=== PATIENT | male | born 1980 | race Caucasian/White ===

== ENCOUNTER 2019-04-18 12:21 | Emergency (ER) | payer SELFPAY ==
[2019-04-18] MEDS ORDERED: FENTANYL CITR 100 MCG/2 ML ONE ×2 (12:41→15:05)
--- NOTE | 2019-04-18 13:54 | RAD REPORT ---
EXAM DESCRIPTION: RAD -Hand Left 3 View - 04/18/2019 1:03 pm CLINICAL HISTORY: Left hand pain status post injury FINDINGS: No acute fracture or dislocation is seen. Soft tissue laceration distal fourth phalanx
[2019-04-18] MEDS ORDERED: LIDOCAINE 1% MPF 5 ML VIAL ONE (14:12)
--- NOTE | 2019-04-18 15:38 | ER ---
Nurse's Notes [facility] Name: Keven Greenberg Age: 38 yrs Sex: Male : 1980 Arrival Date: 04/18/2019 Time: 12:22 Bed 8 Private MD: None, None Diagnosis: Laceration without foreign body of left ring finger with damage to nail Presentation: 04/18 12:24 Presenting complaint: Patient states: He cut his ring finger on the band saw. Drsg to aj1 left hand dry and intact. Last tetanus shot was one year ago. Transition of care: patient was not received from another setting of care. Onset of symptoms was April 18, 2019. Risk Assessment: Do you want to hurt yourself or someone else? Patient reports no desire to harm self or others. Initial Sepsis Screen: Does the patient meet any 2 criteria? No. Patient's initial sepsis screen is negative. Does the patient have a suspected source of infection? No. Patient's initial sepsis screen is negative. Care prior to arrival: None. 12:24 Method Of Arrival: Ambulatory [facility] 12:24 Acuity: FAMILIA 4 aj1 Triage Assessment: 12:25 General: Appears in no apparent distress. uncomfortable, Behavior is cooperative, aj1 anxious. Pain: Complains of pain in left hand Pain currently is 10 out of 10 on a pain scale. Neuro: Level of Consciousness is awake, alert, obeys commands. Cardiovascular: Patient's skin is warm and dry. Respiratory: Airway is patent Respiratory effort is even, unlabored, Respiratory pattern is regular, symmetrical. Historical: - Allergies: 12:25 No Known Allergies; aj1 - Home Meds: 12:25 None [Active]; aj1 - PMHx: 12:25 None; aj1 - PSHx: 12:25 wrist surgery; aj1 - Immunization history:: Last tetanus immunization: up to date. - Social history:: Smoking status: Patient uses tobacco products, smokes one pack cigarettes per day. - Ebola Screening: : Patient denies travel to an Ebola-affected area in the 21 days before illness onset. Screenin:31 Abuse screen: Denies threats or abuse. Nutritional screening: No deficits noted. tw2 Tuberculosis screening: No symptoms or risk factors identified. Fall Risk None identified. Assessment: 12:30 General: Appears in no apparent distress. uncomfortable, Behavior is cooperative, jl7 anxious. Pain: Complains of pain in dorsal aspect of distal phalanx of left ring finger Pain currently is 10 out of 10 on a pain scale. Neuro: Level of Consciousness is awake, alert, obeys commands, Oriented to person, place, time, situation. Cardiovascular: Patient's skin is warm and dry. Respiratory: Airway is patent Respiratory effort is even, unlabored, Respiratory pattern is regular, symmetrical. Derm: Skin is pink, warm \T\ dry. Injury Description: Avulsion sustained to left ring finger is partial was sustained 30-60 minutes ago. 13:21 Reassessment: Patient appears in no apparent distress at this time. No changes from tw2 previously documented assessment. Patient and/or family updated on plan of care and expected duration. Pain level reassessed. Patient is alert, oriented x 3, equal unlabored respirations, skin warm/dry/pink. 16:16 Reassessment: pt will be discharged once shot time is up. jl7 Vital Signs: 12:25 BP 139 / 95; Resp 18; Temp 98.5; Weight 72.57 kg (R); Height 6 ft. 4 in. (193.04 cm) aj1 (R); Pain 10/10; 13:21 BP 109 / 50; Pulse 74; Resp 17; Pulse Ox 95% on R/A; tw2 12:25 Body Mass Index 19.48 (72.57 kg, 193.04 cm) aj1 ED Course: 12:22 Patient arrived in ED. mr 12:22 None, None is Private Physician. mr 12:23 Jerardo Gardner, TEACHER'S ASSISTANT is PHCP. pm1 12:23 Zaid Wilson MD is Attending Physician. pm1 12:25 Triage completed. aj1 12:25 Arm band placed on Patient placed in an exam room. aj1 12:26 Bed in low position. Call light in reach. Adult w/ patient. tw2 12:28 Trent Whittington RN is Primary Nurse. jl7 13:04 Hand Left 3 View XRAY In Process Unspecified. EDMS 15:00 Assist provider with laceration repair on left ring finger that was between 2.6 to 7.5 jl7 cm using sutures. Set up tray. Performed by Jerardo Gardner TEACHER'S ASSISTANT Dressed with 4X4s, Neosporin, Patient tolerated poorly. 15:00 Patient did not have IV access during this emergency room visit. jl7 15:35 Phillip Castillo MD is Referral Physician. pm1 Administered Medications: 12:55 Drug: fentaNYL (PF) 50 mcg Route: IM; Site: right deltoid; jl7 13:15 Follow up: Response: No adverse reaction; Pain is decreased jl7 14:45 Drug: Lidocaine (1 %) 5 ml {Note: administered by KAREN Kurtz.} Volume: 5 ml; Route: jl7 Infiltration; 15:09 Follow up: Response: No adverse reaction jl7 15:07 Drug: fentaNYL (PF) 25 mcg Route: IM; Site: left deltoid; jl7 15:30 Follow up: Response: No adverse reaction; Pain is decreased jl7 16:14 Drug: [place] 10 mg-325 mg 1 tabs Route: PO; jl7 17:00 Follow up: Response: No adverse reaction jl7 16:25 Drug: Ancef 1 grams Route: IM; Site: left gluteus; jl7 17:00 Follow up: Response: No adverse reaction jl7 Outcome: 15:36 Discharge ordered by MD. pm1 17:00 Discharged to home ambulatory, with family. jl7 17:00 Condition: stable 17:00 Discharge instructions given to patient, family, Instructed on discharge instructions, follow up and referral plans. medication usage, wound care, Demonstrated understanding of instructions, follow-up care, medications, wound care, Prescriptions given X 2. 17:08 Patient left the ED. Signatures: Dispatcher [employer] EDMS Katty Herrera RN RN 1 Yany Alcazar Jerardo Gardner NP TEACHER'S ASSISTANT pm1 Massiel Myers RN RN Jackie Webber RN RN tw2 Trent Whittington RN RN jl7
--- NOTE | 2019-04-18 15:38 | EDPHYS ---
Physician Documentation [facility] [place], [place] Name: Keven Greenberg Age: 38 yrs Sex: Male : 1980 Arrival Date: 04/18/2019 Time: 12:22 Bed 8 Private MD: None, None ED Physician Zaid Wilson HPI: 04/18 15:36 This 38 yrs old Male presents to ER via Ambulatory with complaints of Finger pm1 laceration. 15:36 The patient or guardian reports a laceration, irregular. The complaints affect the pm1 dorsal aspect of distal phalanx of left ring finger. Context: The problem was sustained at work, resulted from cut by cross-cut saw blade. Onset: The symptoms/episode began/occurred just prior to arrival. Modifying factors: The symptoms are alleviated by pressure to area. Associated signs and symptoms: Pertinent positives: inability to move DIP of 4th left finger, Pertinent negatives: cyanosis distally, decreased sensation distally, numbness distally, tingling distally. Severity of symptoms: in the emergency department the symptoms are unchanged. Presented to [facility] prior to arrival and left. Was not given any treatment. Historical: - Allergies: 12:25 No Known Allergies; aj1 - Home Meds: 12:25 None [Active]; aj1 - PMHx: 12:25 None; aj1 - PSHx: 12:25 wrist surgery; aj1 - Immunization history:: Last tetanus immunization: up to date. - Social history:: Smoking status: Patient uses tobacco products, smokes one pack cigarettes per day. - Ebola Screening: : Patient denies travel to an Ebola-affected area in the 21 days before illness onset. ROS: 15:38 Constitutional: Negative for fever, chills, and weight loss, Cardiovascular: Negative pm1 for chest pain, palpitations, and edema, Respiratory: Negative for shortness of breath, cough, wheezing, and pleuritic chest pain, Abdomen/GI: Negative for abdominal pain, nausea, vomiting, diarrhea, and constipation, Back: Negative for injury and pain. 15:38 Neuro: Negative for headache, weakness, numbness, tingling, and seizure. 15:38 MS/extremity: Positive for laceration, of the dorsal aspect of distal phalanx of left ring finger, Negative for deformity. 15:38 Skin: Positive for laceration(s), of the dorsal aspect of distal phalanx of left ring finger, abrasion to left middle finger tip. Exam: 15:38 Constitutional: This is a well developed, well nourished patient who is awake, alert, pm1 and in no acute distress. Head/Face: Normocephalic, atraumatic. Chest/axilla: Normal chest wall appearance and motion. Nontender with no deformity. No lesions are appreciated. Cardiovascular: Regular rate and rhythm with a normal S1 and S2. No gallops, murmurs, or rubs. Normal PMI, no JVD. No pulse deficits. Respiratory: Lungs have equal breath sounds bilaterally, clear to auscultation and percussion. No rales, rhonchi or wheezes noted. No increased work of breathing, no retractions or nasal flaring. 15:38 Back: No spinal tenderness. No costovertebral tenderness. Full range of motion. 15:38 Musculoskeletal/extremity: Extremities: grossly normal except: noted in the dorsal aspect of distal phalanx of left ring finger: laceration, small avulsion of medial aspect of finger nail. No nail bed laceration present, ROM: patient unable to flex 4th left DIP. 15:38 Neuro: Orientation: is normal, Motor: is normal, moves all fours. Vital Signs: 12:25 BP 139 / 95; Resp 18; Temp 98.5; Weight 72.57 kg (R); Height 6 ft. 4 in. (193.04 cm) aj1 (R); Pain 10/10; 13:21 BP 109 / 50; Pulse 74; Resp 17; Pulse Ox 95% on R/A; tw2 12:25 Body Mass Index 19.48 (72.57 kg, 193.04 cm) aj1 Laceration: 15:36 Wound Repair of 2.5cm ( 1.0in ) subcutaneous laceration to palmar aspect of distal pm1 phalanx of left ring finger. Irregularly shaped.. Distal neuro/vascular/tendon intact. Anesthesia: Digital block administered with 3 mls of 1% lidocaine. Wound prep: Extensive cleansing with hibiclenz by vt, Wound irrigation with saline by vt, Wound explored extensively, Copious irrigation. Skin closed with 10 5-0 Prolene using simple sutures and sterile technique. Dressed with Neosporin, 4x4's, non-adherent dressing, finger splint. Patient tolerated well. MDM: 12:27 Patient medically screened. pm1 15:34 Data reviewed: vital signs. Data interpreted: Pulse oximetry: on room air is 95 %. pm1 Interpretation: normal. Counseling: I had a detailed discussion with the patient and/or guardian regarding: the historical points, exam findings, and any diagnostic results supporting the discharge/admit diagnosis, radiology results, the need for outpatient follow up, for definitive care, a hand specialist, to return to the emergency department if symptoms worsen or persist or if there are any questions or concerns that arise at home. 15:39 ED course: suspect and told the patient that I believe that there is an injury to pm1 flexor tendon and he needs to follow up with hand surgery for definitive care and wound recheck. Patient is right hand dominant. 04/18 12:41 Order name: Hand Left 3 View XRAY; Complete Time: 15:45 pm1 Administered Medications: 12:55 Drug: fentaNYL (PF) 50 mcg Route: IM; Site: right deltoid; jl7 13:15 Follow up: Response: No adverse reaction; Pain is decreased jl7 14:45 Drug: Lidocaine (1 %) 5 ml {Note: administered by NP. Jerardo} Volume: 5 ml; Route: jl7 Infiltration; 15:09 Follow up: Response: No adverse reaction jl7 15:07 Drug: fentaNYL (PF) 25 mcg Route: IM; Site: left deltoid; jl7 15:30 Follow up: Response: No adverse reaction; Pain is decreased jl7 16:14 Drug: [place] 10 mg-325 mg 1 tabs Route: PO; jl7 17:00 Follow up: Response: No adverse reaction jl7 16:25 Drug: Ancef 1 grams Route: IM; Site: left gluteus; jl7 17:00 Follow up: Response: No adverse reaction jl7 Disposition: 17:13 Co-signature as Attending Physician, Zaid Wilson MD. ma2 Disposition: 04/18/19 15:36 Discharged to Home. Impression: Laceration without foreign body of left ring finger with damage to nail. - Condition is Stable. - Discharge Instructions: Laceration Care, Adult. - Prescriptions for Keflex 500 mg Oral Capsule - take 1 capsule by ORAL route every 6 hours for 10 days; 40 capsule. Tylenol- Codeine #3 300-30 mg Oral Tablet - take 2 tablets by ORAL route every 6 hours As needed; 20 tablet. - Medication Reconciliation Form, Thank You Letter, Antibiotic Education, Prescription Opioid Use form. - Follow up: Emergency Department; When: As needed; Reason: Worsening of condition. Follow up: Phillip Castillo MD; When: 2 - 3 days; Reason: Recheck today's complaints, Continuance of care, Re-evaluation by your physician. - Problem is new. - Symptoms have improved. Signatures: Dispatcher [employer] EDMS Katty Herrera RN RN aj1 Jerardo Gardner NP INBOUND INGREDIENT LOGISTICS SPECIALIST pm1 Massiel Myers RN RN hb Trent Whittington RN RN jl7 Zaid Wilson MD MD ma2 Corrections: (The following items were deleted from the chart) 17:08 15:36 04/18/2019 15:36 Discharged to Home. Impression: Laceration without foreign body hb of left ring finger with damage to nail. Condition is Stable. Forms are Medication Reconciliation Form, Thank You Letter, Antibiotic Education, Prescription Opioid Use. Follow up: Emergency Department; When: As needed; Reason: Worsening of condition. Follow up: Phillip Castillo; When: 2 - 3 days; Reason: Recheck today's complaints, Continuance of care, Re-evaluation by your physician. Problem is new. Symptoms have improved. pm1
[2019-04-18] MEDS ORDERED: HYDROCODONE/APAP 10/325 TAB ONE (16:06)
[2019-04-18] MEDS ORDERED: CEFAZOLIN SODIUM 1 GM/VIAL ONE ×2 (16:06→16:23)
[2019-04-18] MEDS ORDERED: LIDOCAINE 2% MPF 5 ML VIAL ONE (16:07)
[2019-04-18] MEDS ORDERED: WATER FOR INJ,STERILE 10 ML ONE (16:23)
[2019-04-18 19:14] VITALS: TEMP 98.5
[2019-04-18 19:16] VITALS: BP 109/50; O2SAT 95
== END 2019-04-18 17:08 | disposition home or self-care (01) ==
LOC: ER 12:21
PROC: 0JQK0ZZ Repair Left Hand Subcutaneous Tissue and Fascia, Open Approach (ICD-10-PCS; principal; 2019-04-18)
DX: S61.325A Laceration with foreign body of left ring finger with damage to nail, initial encounter (principal); W29.3XXA Contact with powered garden and outdoor hand tools and machinery, initial encounter; Y93.89 Activity, other specified; Y92.9 Unspecified place or not applicable; Y99.0 Civilian activity done for income or pay
CPT/HCPCS: 96372; 99284; J0690; J3010

== ENCOUNTER 2020-07-01 16:00 | Emergency (ER) | payer SELFPAY ==
[2020-07-01] MEDS ORDERED: MORPHINE 4 MG/ML SYR ONE (16:55)
--- NOTE | 2020-07-01 17:22 | RAD REPORT ---
EXAM DESCRIPTION: RAD - Forearm Right - 07/01/2020 5:02 pm CLINICAL HISTORY: Right arm pain status post fall FINDINGS: Comminuted, impacted, markedly displaced fracture distal radius. Debris is present within the soft tissues. There may be disruption of the distal radioulnar joint
--- NOTE | 2020-07-01 17:27 | EDPHYS ---
Physician Documentation [facility] Name: Keven Greenberg Age: 39 yrs Sex: Male : 1980 Arrival Date: 07/01/2020 Time: 16:01 Bed 2 Private MD: ED Physician Omar Paz HPI: 07/01 16:30 This 39 yrs old Male presents to ER via Wheelchair with complaints of Wrist cp Injury. 16:30 The patient or guardian reports decreased range of motion, deformity, injury, pain. cp 16:30 The complaints affect the right wrist diffusely. cp 16:30 Context: The problem was sustained outdoors, resulted from a fall, on an outstretched cp hand. Onset: The symptoms/episode began/occurred just prior to arrival. Associated signs and symptoms: Pertinent negatives: cyanosis distally, numbness distally, LOC. Patient reports fall from barn approximately 6 feet off ground, landing with outstretched right hand. Historical: - Allergies: 16:10 No Known Allergies; jd3 - Home Meds: 16:10 None [Active]; jd3 - PMHx: 16:10 None; jd3 - PSHx: 16:10 left wrist surgery; jd3 - Immunization history:: Adult Immunizations up to date. - Social history:: Smoking status: unknown. ROS: 16:35 Constitutional: Negative for fever. cp 16:35 Neck: Negative for pain with movement, pain at rest, stiffness. cp 16:35 Cardiovascular: Negative for chest pain. 16:35 Respiratory: Negative for cough, shortness of breath, wheezing. 16:35 Abdomen/GI: Negative for abdominal pain, nausea, vomiting, and diarrhea. 16:35 MS/extremity: Positive for injury or acute deformity, decreased range of motion, pain, swelling, tenderness, of the right wrist. 16:35 Neuro: Negative for altered mental status, headache, loss of consciousness, syncope, weakness. 16:35 All other systems are negative. Exam: 16:45 Constitutional: The patient appears in no acute distress, alert, awake, cp non-diaphoretic, non-toxic, well developed, well nourished, in obvious pain, uncomfortable. 16:45 Head/Face: Normocephalic, atraumatic. cp 16:45 Eyes: Periorbital structures: appear normal, Conjunctiva: normal, no exudate, no injection, Lids and lashes: appear normal, bilaterally. 16:45 Neck: C-spine: vertebral tenderness, is not appreciated, crepitus, is not appreciated, ROM/movement: is normal, is supple, without pain, no range of motions limitations. 16:45 Chest/axilla: Inspection: normal, Palpation: is normal, no crepitus, no tenderness. 16:45 Cardiovascular: Rate: tachycardic, Rhythm: regular. 16:45 Respiratory: the patient does not display signs of respiratory distress, Respirations: normal, no use of accessory muscles, no retractions, labored breathing, is not present, Breath sounds: are clear throughout, no decreased breath sounds. 16:45 Abdomen/GI: Inspection: abdomen appears normal, Palpation: abdomen is soft and non-tender, in all quadrants. 16:45 Back: pain, is absent, ROM is normal. 16:45 Musculoskeletal/extremity: Extremities: grossly normal except: noted in the right wrist: decreased ROM, deformity, pain, swelling, tenderness, ROM: limited passive range of motion due to pain, in the right wrist, Perfusion: the extremity is normally perfused throughout, Severe pain noted. skin intact with no open wounds. 16:45 Neuro: Orientation: to person, place \T\ time. Mentation: is normal. Vital Signs: 16:10 BP 118 / 65; Pulse 104; Resp 19 S; Temp 97.0(TE); Pulse Ox 96% on R/A; Weight 79.38 kg jd3 (R); Height 6 ft. 4 in. (193.04 cm) (R); Pain 10/10; 17:33 BP 134 / 80; Pulse 80; Resp 20; Pulse Ox 100% ; Pain 4/10; bw 16:10 Body Mass Index 21.30 (79.38 kg, 193.04 cm) jd3 Procedures: 17:50 Splinting: Splint applied to right wrist using Orthoglass splint, sling, sugar tong cp type. applied by tech. Examined by me, post splint application: neurovascular intact, Patient tolerated well. MDM: 16:23 Patient medically screened. cp 17:00 Differential diagnosis: dislocation, open fracture, closed fracture, multiple trauma. cp 17:25 Data reviewed: vital signs, nurses notes, radiologic studies, plain films, I have cp discussed the patient's presentation/case with the attending Emergency Department Physician; and as a result, I will discharge patient. 17:25 Test interpretation: by ED physician or midlevel provider: plain radiologic studies. cp Counseling: I had a detailed discussion with the patient and/or guardian regarding: the historical points, exam findings, and any diagnostic results supporting the discharge/admit diagnosis, radiology results, the need for outpatient follow up, for definitive care, a orthopedic surgeon, to return to the emergency department if symptoms worsen or persist or if there are any questions or concerns that arise at home. Response to treatment: the patient's symptoms have markedly improved after treatment, VSS. pain improved with meds. Extremity splinted as noted. Will discharge to home for continued monitoring. 07/01 16:23 Order name: XRAY Forearm RIGHT; Complete Time: 17:25 cp 07/01 16:23 Order name: IV; Complete Time: 16:47 cp 07/01 17:17 Order name: Wound Care; Complete Time: 17:58 cp 07/01 17:17 Order name: Splint - Sugar Tong - Forearm; Complete Time: 17:58 cp 07/01 17:17 Order name: Sling; Complete Time: 17:58 cp Administered Medications: 16:47 Drug: morphine 4 mg Route: IVP; Site: left antecubital; bw 17:58 Drug: Hydrocodone-Acetaminophen (7.5 mg-325 mg) 1 tabs Route: PO; bw Disposition: 18:10 Chart complete. 07/02 06:47 Co-signature as Attending Physician, Omar Paz MD I agree with the assessment and kdr plan of care. Disposition: 07/01/20 17:26 Discharged to Home. Impression: Displaced comminuted fracture of shaft of radius, right arm - distal. - Condition is Stable. - Discharge Instructions: Wrist Fracture Treated With ORIF. - Prescriptions for Tylenol- Codeine #3 300-30 mg Oral Tablet - take 2 tablets by ORAL route every 6-8 hours As needed; 20 tablet. - Medication Reconciliation Form, Thank You Letter, Antibiotic Education, Prescription Opioid Use form. - Follow up: Benjamín Leslie MD; When: 2 - 3 days; Reason: Recheck today's complaints. - Problem is new. - Symptoms have improved. Signatures: Dispatcher [employer] EDMS Omar Paz MD MD kdr Valentin Martines PA PA cp Davies, Jonathon, RN RN jd3 Eli Alvarez RN RN bw Corrections: (The following items were deleted from the chart) 07/01 18:04 17:26 07/01/2020 17:26 Discharged to Home. Impression: Displaced comminuted fracture of bw shaft of radius, right arm - distal. Condition is Stable. Forms are Medication Reconciliation Form, Thank You Letter, Antibiotic Education, Prescription Opioid Use. Follow up: Benjamín Leslie; When: 2 - 3 days; Reason: Recheck today's complaints. Problem is new. Symptoms have improved. cp
--- NOTE | 2020-07-01 17:27 | ER ---
Nurse's Notes [facility] Name: Keven Greenberg Age: 39 yrs Sex: Male : 1980 Arrival Date: 07/01/2020 Time: 16:01 Bed 2 Private MD: Diagnosis: Displaced comminuted fracture of shaft of radius, right arm-distal Presentation: 07/01 16:09 Chief complaint: Patient states: "I fell about 6 feet and landed on my right wrist. No jd3 LOC, but I hit my head pretty good too.". Coronavirus screen: At this time, the client does not indicate any symptoms associated with coronavirus-19. Ebola Screen: Patient negative for fever greater than or equal to 101.5 degrees Fahrenheit, and additional compatible Ebola Virus Disease symptoms. Initial Sepsis Screen: Does the patient meet any 2 criteria? No. Patient's initial sepsis screen is negative. Does the patient have a suspected source of infection? No. Patient's initial sepsis screen is negative. Risk Assessment: Do you want to hurt yourself or someone else? Patient reports no desire to harm self or others. Onset of symptoms was July 01, 2020. 16:09 Method Of Arrival: Wheelchair jd3 16:09 Acuity: FAMILIA 3 jd3 Historical: - Allergies: 16:10 No Known Allergies; jd3 - Home Meds: 16:10 None [Active]; jd3 - PMHx: 16:10 None; jd3 - PSHx: 16:10 left wrist surgery; jd3 - Immunization history:: Adult Immunizations up to date. - Social history:: Smoking status: unknown. Screenin:51 Abuse screen: Denies threats or abuse. Nutritional screening: No deficits noted. bw Tuberculosis screening: No symptoms or risk factors identified. Fall Risk None identified. Assessment: 16:51 General: Appears uncomfortable, Behavior is cooperative, appropriate for age. Pain: bw Complains of pain in dorsal aspect of right forearm. Neuro: No deficits noted. Cardiovascular: No deficits noted. Respiratory: No deficits noted. GI: No deficits noted. : No deficits noted. EENT: No deficits noted. Derm: No deficits noted. Musculoskeletal: Bony deformity noted of dorsal aspect of right forearm, right wrist and right hand. Injury Description: deformity noted to right wrist. Pt c/o 02/05. Pain medication given per order. Pt states he fell 6 foot from barn and landed onto right wrist. Pulses palpable. Capillary refill WNL. VSS. Vital Signs: 16:10 BP 118 / 65; Pulse 104; Resp 19 S; Temp 97.0(TE); Pulse Ox 96% on R/A; Weight 79.38 kg jd3 (R); Height 6 ft. 4 in. (193.04 cm) (R); Pain 10/10; 17:33 BP 134 / 80; Pulse 80; Resp 20; Pulse Ox 100% ; Pain 4/10; bw 16:10 Body Mass Index 21.30 (79.38 kg, 193.04 cm) jd3 ED Course: 16:01 Patient arrived in ED. as 16:10 Triage completed. jd3 16:10 Arm band placed on. jd3 16:18 Valentin Martines PA is PHCP. cp 16:18 Omar Paz MD is Attending Physician. cp 16:34 Eli Alvarez, AYLA is Primary Nurse. bw 16:51 Patient has correct armband on for positive identification. Bed in low position. Call bw light in reach. Side rails up X2. 16:51 Inserted saline lock: 18 gauge in left antecubital area, using aseptic technique. bw 17:02 XRAY Forearm RIGHT In Process Unspecified. EDMS 17:25 Benjamín Leslie MD is Referral Physician. cp Administered Medications: 16:47 Drug: morphine 4 mg Route: IVP; Site: left antecubital; bw 17:58 Drug: Hydrocodone-Acetaminophen (7.5 mg-325 mg) 1 tabs Route: PO; bw Outcome: 17:26 Discharge ordered by . cp 18:04 Patient left the ED. bw Signatures: Dispatcher [employer] EDMS Angela Walker Corey, PA PA cp Perry Rosario RN RN j Eli Alvarez RN RN
[2020-07-01] MEDS ORDERED: HYDROCODONE/APAP 7.5/325 MG TAB ONE (18:11)
[2020-07-01 22:52] VITALS: TEMP 97
[2020-07-01 22:53] VITALS: BP 134/80; O2SAT 100
== END 2020-07-01 18:04 | disposition home or self-care (01) ==
LOC: ER 16:00
PROC: 2W3CX1Z Immobilization of Right Lower Arm using Splint (ICD-10-PCS; principal; 2020-07-01)
DX: S52.351A Displaced comminuted fracture of shaft of radius, right arm, initial encounter for closed fracture (principal); W17.89XA Other fall from one level to another, initial encounter; Y93.9 Activity, unspecified; Y92.89 Other specified places as the place of occurrence of the external cause
CPT/HCPCS: 96374; 99283

== ENCOUNTER 2021-09-02 11:29 | Emergency (ER) | payer SELFPAY ==
--- NOTE | 2021-09-02 12:17 | EDPHYS ---
Physician Documentation [facility] Name: Keven Greenberg Age: 41 yrs Sex: Male : 1980 Arrival Date: 09/02/2021 Time: 11:30 Bed Waiting Private MD: ED Physician Valentin Brady Historical: - Allergies: 09/02 11:35 No Known Allergies; ss - Home Meds: 11:35 None [Active]; ss - PMHx: 11:35 None; ss - PSHx: 11:35 wrist repair; ss - Immunization history:: Client reports having NOT received the Covid vaccine. - Social history:: Smoking status: Patient reports the use of cigarette tobacco products, smokes one pack cigarettes per day. Vital Signs: 11:34 Weight 77.11 kg; Height 6 ft. 4 in. (193.04 cm); Pain 9/10; ss 11:35 BP 144 / 99; Pulse 80; Resp 16; Temp 98.0; Pulse Ox 97% on R/A; ss 11:34 Body Mass Index 20.69 (77.11 kg, 193.04 cm) ss MDM: 12:07 ED course: Patient told registration that he is leaving. Patient left after being pm1 triaged. I did not evaluate the patient . 12:16 Medical screening is not applicable. pm1 Administered Medications: 12:22 Not Given (Patient Eloped): Tetanus-Diphtheria Toxoid Adult 0.5 ml IM once ss Disposition Summary: 09/02/21 12:16 Eloped Disposition: post triage evaluation and consult pm1 Problem: new pm1 Symptoms: are unchanged pm1 Reason: (see nurse's notes) pm1 Condition: Stable pm1 Diagnosis - Right hand laceration pm1 Followup: pm1 - With: Emergency Department - When: As needed - Reason: Worsening of condition Signatures: Dispatcher [employer] EDMS Nati Braxton RN RN ss Jerardo Gardner, [employer] MA[employer]GEMENT MANAGER pm1
--- NOTE | 2021-09-02 12:17 | ER ---
Nurse's Notes [facility] Name: Keven Greenberg Age: 41 yrs Sex: Male : 1980 Arrival Date: 09/02/2021 Time: 11:30 Bed Waiting Private MD: Diagnosis: Right hand laceration Presentation: 09/02 11:34 Chief complaint: Patient states: Laceration to R hand that occurred just prior to ss arrival after dropping ceramic toilet. Coronavirus screen: Client denies travel out of the [place] in the last 14 days. Ebola Screen: Patient denies exposure to infectious person. Patient denies travel to an Ebola-affected area in the 21 days before illness onset. Complicating Factors: There are no complicating factors for this patient. Initial Sepsis Screen: Does the patient meet any 2 criteria? No. Patient's initial sepsis screen is negative. Does the patient have a suspected source of infection? No. Patient's initial sepsis screen is negative. Risk Assessment: Do you want to hurt yourself or someone else? Patient reports no desire to harm self or others. Onset of symptoms was September 02, 2021. 11:34 Method Of Arrival: Ambulatory ss 11:34 Acuity: FAMILIA 4 ss Historical: - Allergies: 11:35 No Known Allergies; ss - Home Meds: 11:35 None [Active]; ss - PMHx: 11:35 None; ss - PSHx: 11:35 wrist repair; ss - Immunization history:: Client reports having NOT received the Covid vaccine. - Social history:: Smoking status: Patient reports the use of cigarette tobacco products, smokes one pack cigarettes per day. Assessment: 11:39 Reassessment: wet gauze with kerlix used to wrap area of concern. 1 inch laceration ss noted to R hand. No active bleeding noted at this time. 11:45 Reassessment: PT refusing XRAY stating, "there isn't going to be anything in there.". ss 12:06 Reassessment: Called to exam room, unable to locate patient. Called number on file. ss Pt's significant other states, "oh we left. We are going to [place].". Vital Signs: 11:34 Weight 77.11 kg; Height 6 ft. 4 in. (193.04 cm); Pain 9/10; ss 11:35 BP 144 / 99; Pulse 80; Resp 16; Temp 98.0; Pulse Ox 97% on R/A; ss 11:34 Body Mass Index 20.69 (77.11 kg, 193.04 cm) ED Course: 11:30 Patient arrived in ED. mr 11:35 Triage completed. ss 11:35 Arm band placed on right wrist. ss 11:42 Jerardo Gardner NP is PHCP. pm1 11:42 Valentin Brady MD is Attending Physician. pm1 12:22 No provider procedures requiring assistance completed. Patient did not have IV access ss during this emergency room visit. Administered Medications: 12:22 Not Given (Patient Eloped): Tetanus-Diphtheria Toxoid Adult 0.5 ml IM once ss Outcome: 12:22 Eloped from waiting room, before seeing physician ss 12:23 Patient left the ED. Signatures: Alcazar, Yany mr Nati Braxton RN RN Jerardo Gardner NP VB NET PROGRAMMER pm1
[2021-09-02 12:28] VITALS: BP 144/99; TEMP 98; O2SAT 97
== END 2021-09-02 12:23 | disposition left against medical advice (07) ==
LOC: ER 11:29
DX: Z53.21 Procedure and treatment not carried out due to patient leaving prior to being seen by health care provider (principal)
CPT/HCPCS: 99281

== ENCOUNTER 2022-04-08 20:07 | Emergency (ER) | payer SELFPAY ==
[2022-04-08] MEDS ORDERED: IBUPROFEN 400 MG TAB ONE (21:54)
[2022-04-08] MEDS ORDERED: HYDROCODONE/APAP 7.5/325 MG TAB ONE (21:55)
--- NOTE | 2022-04-08 22:34 | RAD REPORT ---
EXAM DESCRIPTION: RAD - Hand Right 3 View - 04/08/2022 10:28 pm CLINICAL HISTORY: laceration of finger COMPARISON: None FINDINGS/IMPRESSION: No acute fracture. No malalignment. No significant focal degenerative changes. Plate and screw at the distal radius. No radiopaque foreign body.
[2022-04-08] MEDS ORDERED: LIDOCAINE 1% 20 ML MDV ONE (22:48)
[2022-04-08] MEDS ORDERED: BUPIVACAINE 0.5% PF 10 ML VIAL ONE (22:48)
--- NOTE | 2022-04-08 23:39 | EDPHYS ---
Physician Documentation [facility] Name: Keven Greenberg Age: 41 yrs Sex: Male : 1980 Arrival Date: 04/08/2022 Time: 20:09 Bed 12 Private MD: ED Physician Pako Britton HPI: 04/08 20:45 This 41 yrs old Male presents to ER via Ambulatory with complaints of Laceration - cp finger. 20:45 The patient or guardian reports injury, a laceration, dirty. The complaints affect the cp right small finger. 20:45 Context: resulted from sharp edge of razor. Onset: The symptoms/episode began/occurred cp today. Associated signs and symptoms: The patient has no apparent associated signs or symptoms. Patient reports he was using razor to strip wire when sharp edge cut right fifth finger. 20:45 Patient refusing to remove electrical tape bandage at this time until pain medications cp are given. Historical: - Allergies: 20:44 No Known Allergies; kb3 - Home Meds: 20:44 None [Active]; kb3 - PMHx: 20:44 None; kb3 - PSHx: 20:44 wrist repair; kb3 - Immunization history:: Adult Immunizations up to date, Client reports having NOT received the Covid vaccine. Last tetanus immunization: < 5 years ago. - Social history:: Smoking status: Patient reports the use of cigarette tobacco products, smokes one pack cigarettes per day. ROS: 20:50 MS/extremity: Positive for laceration, of the right fifth finger. cp 20:50 Eyes: Negative for injury, pain, redness, and discharge. cp 20:50 Constitutional: Negative for body aches, chills, fever. 20:50 Cardiovascular: Negative for chest pain, edema, palpitations. 20:50 Respiratory: Negative for cough, shortness of breath, wheezing. 20:50 Abdomen/GI: Negative for abdominal pain, nausea, vomiting, and diarrhea. 20:50 Neuro: Negative for numbness. 20:50 All other systems are negative. Exam: 22:15 Constitutional: The patient appears in no acute distress, alert, awake, non-toxic, well cp developed, well nourished, uncomfortable. 22:15 Head/Face: Normocephalic, atraumatic. cp 22:15 Chest/axilla: Inspection: normal. cp 22:15 Cardiovascular: Rate: normal, Rhythm: regular. 22:15 Respiratory: the patient does not display signs of respiratory distress, Respirations: normal, no use of accessory muscles, no retractions, labored breathing, is not present. 22:15 Musculoskeletal/extremity: Extremities: noted in the ow[place]u side of right fifth finger: laceration, pain, tenderness, mild bleeding noted, There is no evidence of decreased ROM, Perfusion: the extremity is normally perfused throughout. Vital Signs: 20:43 BP 137 / 100; Pulse 96; Resp 20; Temp 98.8; Pulse Ox 98% ; Weight 79.38 kg; Height 6 kb3 ft. 4 in. (193.04 cm); Pain 10/; 20:43 Body Mass Index 21.30 (79.38 kg, 193.04 cm) kb3 MDM: 20:45 ED course: Patient with injured right small finger wrapped in electrical tape and cp requesting pain medications before allowing evaluation of injured finger. 20:55 Patient medically screened. cp 23:36 Data reviewed: vital signs, nurses notes, radiologic studies, plain films. Test cp interpretation: by ED physician or midlevel provider: plain radiologic studies. ED course: Patient not in room and appears to have left department w/o notifying staff. 04/08 22:13 Order name: XRAY Hand RIGHT 3 View; Complete Time: 22:36 cp 04/08 22:36 Interpretation: Report reviewed. cp 04/08 22:39 Order name: Dressing - Wound; Complete Time: 22:47 cp 04/08 22:39 Order name: Gloves, Sterile; Complete Time: 22:47 cp 04/08 22:39 Order name: Setup Suture Tray; Complete Time: 22:47 cp Administered Medications: 21:58 Drug: Hydrocodone-Acetaminophen (7.5 mg-325 mg) 1 tabs Route: PO; hb 22:58 Follow up: Response: No adverse reaction hb 21:58 Drug: Ibuprofen 800 mg Route: PO; hb 22:58 Follow up: Response: No adverse reaction hb 22:58 Drug: Lidocaine (1 %) 10 ml {Note: administered by PA Page.} Volume: 5 ml; Route: hb Infiltration; 22:58 Drug: Marcaine (bupivacaine) (0.5 %) 10 ml {Note: administered by PA Page.} Volume: 10 hb ml; Route: Infiltration; Disposition: 04/09 00:11 Co-signature as Attending Physician, Pako Britton MD. rn Disposition Summary: 04/08/22 23:39 Discharge Ordered Location: Home cp Problem: new cp Symptoms: have improved cp Condition: Stable cp Diagnosis - Laceration without foreign body of right little finger without damage to nail, cp initial encounter Followup: cp - With: Private Physician - When: 1 - 2 days - Reason: Wound Recheck Discharge Instructions: - Discharge Summary Sheet cp - Nonsutured Laceration Care cp Forms: - Medication Reconciliation Form cp - Thank You Letter cp - Antibiotic Education cp - Prescription Opioid Use cp Signatures: Dispatcher [employer] EDPako Ellison MD MD rn Page, Corey, PA PA cp Baxter, Heather, RN RN Kirti Chaudhry RN RN kb3
--- NOTE | 2022-04-08 23:39 | ER ---
Nurse's Notes [facility] Name: Keven Greenberg Age: 41 yrs Sex: Male : 1980 Arrival Date: 04/08/2022 Time: 20:09 Bed 12 Private MD: Diagnosis: Laceration without foreign body of right little finger without damage to nail, initial encounter Presentation: 04/08 20:43 Chief complaint: Patient states: he was stripping wire just prior to arrival and cut kb3 his pinky on the right hand. PT has it wrapped with electrical tape and is refusing to remove the tape for assessment until he receives pain medication. Coronavirus screen: Vaccine status: Patient reports being unvaccinated. Client denies travel out of the [place] in the last 14 days. Ebola Screen: Patient negative for fever greater than or equal to 101.5 degrees Fahrenheit, and additional compatible Ebola Virus Disease symptoms Patient denies exposure to infectious person. Patient denies travel to an Ebola-affected area in the 21 days before illness onset. Complicating Factors: There are no complicating factors for this patient. Initial Sepsis Screen: Does the patient meet any 2 criteria? No. Patient's initial sepsis screen is negative. Does the patient have a suspected source of infection? No. Patient's initial sepsis screen is negative. Risk Assessment: Do you want to hurt yourself or someone else? Patient reports no desire to harm self or others. Onset of symptoms was April 08, 2022 at 20:00. 20:43 Method Of Arrival: Ambulatory kb3 20:43 Acuity: FAMILIA 4 kb3 Triage Assessment: 20:44 General: Appears in no apparent distress. Behavior is calm, cooperative. Pain: kb3 Complains of pain in dorsal aspect of middle phalanx of right little finger, dorsal aspect of proximal phalanx of right little finger, palmar aspect of distal phalanx of right little finger, palmar aspect of middle phalanx of right little finger, palmar aspect of proximal phalanx of right little finger and right little fingernail Pain does not radiate. Pain currently is 10 out of 10 on a pain scale. Historical: - Allergies: 20:44 No Known Allergies; kb3 - Home Meds: 20:44 None [Active]; kb3 - PMHx: 20:44 None; kb3 - PSHx: 20:44 wrist repair; kb3 - Immunization history:: Adult Immunizations up to date, Client reports having NOT received the Covid vaccine. Last tetanus immunization: < 5 years ago. - Social history:: Smoking status: Patient reports the use of cigarette tobacco products, smokes one pack cigarettes per day. Screenin:28 Abuse screen: Denies threats or abuse. Denies injuries from another. Nutritional hb screening: No deficits noted. Tuberculosis screening: No symptoms or risk factors identified. Fall Risk Total Berumen Fall Scale indicates No Risk (0-24 pts). Assessment: 22:28 General: Appears in no apparent distress. uncomfortable, Behavior is cooperative, hb anxious. Pain: Pain currently is 10 out of 10 on a pain scale. Neuro: Level of Consciousness is awake, alert, obeys commands, Oriented to person, place, time, situation. Cardiovascular: Patient's skin is warm and dry. Respiratory: Respiratory effort is even, unlabored, Respiratory pattern is regular, symmetrical. GI: No signs and/or symptoms were reported involving the gastrointestinal system. : No signs and/or symptoms were reported regarding the genitourinary system. EENT: No signs and/or symptoms were reported regarding the EENT system. Derm: Skin is pink, warm \T\ dry. Musculoskeletal: laceration to right 5th finger, dressing in place. Vital Signs: 20:43 BP 137 / 100; Pulse 96; Resp 20; Temp 98.8; Pulse Ox 98% ; Weight 79.38 kg; Height 6 kb3 ft. 4 in. (193.04 cm); Pain 10/10; 20:43 Body Mass Index 21.30 (79.38 kg, 193.04 cm) kb3 ED Course: 20:09 Patient arrived in ED. as 20:16 Valentin Martines PA is PHCP. cp 20:16 Pako Britton MD is Attending Physician. cp 20:44 Triage completed. kb3 20:44 Arm band placed on left wrist. kb3 21:52 Massiel Myers, RN is Primary Nurse. hb 22:28 Patient has correct armband on for positive identification. hb 22:28 No provider procedures requiring assistance completed. Patient did not have IV access hb during this emergency room visit. 22:30 XRAY Hand RIGHT 3 View In Process Unspecified. EDMS Administered Medications: 21:58 Drug: Hydrocodone-Acetaminophen (7.5 mg-325 mg) 1 tabs Route: PO; hb 22:58 Follow up: Response: No adverse reaction hb 21:58 Drug: Ibuprofen 800 mg Route: PO; hb 22:58 Follow up: Response: No adverse reaction hb 22:58 Drug: Lidocaine (1 %) 10 ml {Note: administered by ALFRED Martines.} Volume: 5 ml; Route: hb Infiltration; 22:58 Drug: Marcaine (bupivacaine) (0.5 %) 10 ml {Note: administered by ALFRED Martines.} Volume: 10 hb ml; Route: Infiltration; Outcome: 23:39 Discharge ordered by MD. hester 23:40 Patient left the ED. hb Signatures: Dispatcher [employer] EDMS Angela Walker Corey, PA PA cp Baxter, Heather, RN RN hb Kirti Rand, RN RN kb3
[2022-04-08 23:46] VITALS: BP 137/100; TEMP 98.8; O2SAT 98
== END 2022-04-08 23:40 | disposition home or self-care (01) ==
LOC: ER 20:07
DX: S61.216A Laceration without foreign body of right little finger without damage to nail, initial encounter (principal); F17.210 Nicotine dependence, cigarettes, uncomplicated
CPT/HCPCS: 99283

== ENCOUNTER 2024-09-17 11:55 | Emergency (ER) | payer OTHER, SELFPAY ==
[2024-09-17] MEDS ORDERED: predniSONE 20 MG TAB ONE (12:23)
[2024-09-17] MEDS ORDERED: DIPHENHYDRAMINE 25 MG TAB/CAP ONE (12:24)
[2024-09-17] MEDS ORDERED: FAMOTIDINE 20 MG TAB ONE (12:24)
--- NOTE | 2024-09-17 14:13 | EDPHYS ---
Physician Documentation [facility] Name: Keven Greenberg Age: 44 yrs Sex: Male : 1980 Arrival Date: 09/17/2024 Time: 11:55 Bed DX3 Private MD: ED Physician Valentin Brady HPI: 09/17 14:04 This 44 yrs old Male presents to ER via Ambulatory with complaints of poison messi kiesha -all over. 14:04 The patient's rash thought to be caused by Dermatitis Contact allergy. The rash is messi located on the abdomen, right arm, left arm, right leg and left leg. The rash can be described as erythematous, raised. Associated signs and symptoms: Pertinent positives: itching. Severity of symptoms: At their worst the symptoms were moderate in the emergency department the symptoms are unchanged. Historical: - Allergies: 12:16 No Known Allergies; ll1 - PMHx: 12:24 None; ll1 - PSHx: 12:16 wrist repair; ll1 - Immunization history:: Adult Immunizations up to date. - Infectious Disease History:: Denies. - Social history:: Smoking status: Patient reports the use of cigarette tobacco products, smokes one-half pack cigarettes per day. - Family history:: not pertinent. ROS: 14:06 Constitutional: Negative for fever, chills, and weight loss, Eyes: Negative for injury, messi pain, redness, and discharge, ENT: Negative for injury, pain, and discharge, Neck: Negative for injury, pain, and swelling, Cardiovascular: Negative for chest pain, palpitations, and edema, Respiratory: Negative for shortness of breath, cough, wheezing, and pleuritic chest pain, Abdomen/GI: Negative for abdominal pain, nausea, vomiting, diarrhea, and constipation, Back: Negative for injury and pain, : Negative for injury, bleeding, discharge, and swelling, MS/Extremity: Negative for injury and deformity, Neuro: Negative for headache, weakness, numbness, tingling, and seizure, Psych: Negative for depression, anxiety, suicide ideation, homicidal ideation, and hallucinations, Allergy/Immunology: Negative for hives, rash, and allergies, Endocrine: Negative for neck swelling, polydipsia, polyuria, polyphagia, and marked weight changes, Hematologic/Lymphatic: Negative for swollen nodes, abnormal bleeding, and unusual bruising, 14:06 Skin: Positive for rash, diffusely, Exam: 14:06 Constitutional: This is a well developed, well nourished patient who is awake, alert, messi and in no acute distress. Head/Face: Normocephalic, atraumatic. Eyes: Pupils equal round and reactive to light, extra-ocular motions intact. Lids and lashes normal. Conjunctiva and sclera are non-icteric and not injected. Cornea within normal limits. Periorbital areas with no swelling, redness, or edema. ENT: Nares patent. No nasal discharge, no septal abnormalities noted. Tympanic membranes are normal and external auditory canals are clear. Oropharynx with no redness, swelling, or masses, exudates, or evidence of obstruction, uvula midline. Mucous membranes moist. Neck: Trachea midline, no thyromegaly or masses palpated, and no cervical lymphadenopathy. Supple, full range of motion without nuchal rigidity, or vertebral point tenderness. No Meningismus. Chest/axilla: Normal chest wall appearance and motion. Nontender with no deformity. No lesions are appreciated. Cardiovascular: Regular rate and rhythm with a normal S1 and S2. No gallops, murmurs, or rubs. Normal PMI, no JVD. No pulse deficits. Respiratory: Lungs have equal breath sounds bilaterally, clear to auscultation and percussion. No rales, rhonchi or wheezes noted. No increased work of breathing, no retractions or nasal flaring. Abdomen/GI: Soft, non-tender, with normal bowel sounds. No distension or tympany. No guarding or rebound. No evidence of tenderness throughout. Back: No spinal tenderness. No costovertebral tenderness. Full range of motion. Neuro: Awake and alert, GCS 15, oriented to person, place, time, and situation. Cranial nerves II-XII grossly intact. Motor strength 5/5 in all extremities. Sensory grossly intact. Cerebellar exam normal. Normal gait. Psych: Awake, alert, with orientation to person, place and time. Behavior, mood, and affect are within normal limits. 14:06 Skin: induration, that is mild is noted, that is moderate is noted, injury, abrasion(s), very small abrasion noted, rash can be described as erythematous, raised, urticarial, Turgor: is excellent, Vital Signs: 12:25 BP 136 / 94; Pulse 94; Resp 17; Temp 97.5; Pulse Ox 98% ; Weight 81.65 kg; Height 6 ft. ll1 4 in. ; Pain 10/10; 12:25 Body Mass Index 21.91 (81.65 kg, 193.04 cm) ll1 12:25 Pain Scale: Adult ll1 Nupur Coma Score: 14:06 Eye Response: spontaneous(4). Motor Response: obeys commands(6). Verbal Response: messi oriented(5). Total: 15. MDM: 12:07 Medical Screening Exam initiated messi 14:07 Differential diagnosis: allergic reaction. Data reviewed: vital signs, nurses notes. messi Consideration of Admission/Observation Escalation of care including admission/observation considered. I considered the following discharge prescriptions or medication management in the emergency department Medications were administered in the Emergency Department. See MAR. Test considered but Not performed: Labs: no labs. Care significantly affected by the following chronic conditions: none. Counseling: I had a detailed discussion with the patient and/or guardian regarding the historical points, exam findings, and any diagnostic results supporting the discharge/admit diagnosis, the need for outpatient follow up, for definitive care, a family practitioner. Administered Medications: 12:44 Drug: diphenhydrAMINE PO 50 mg PO once Route: PO; ll1 13:58 Follow up: Response: No adverse reaction ap3 12:44 Drug: Famotidine PO 40 mg PO once Route: PO; ll1 13:58 Follow up: Response: No adverse reaction ap3 12:44 Drug: predniSONE PO 60 mg PO once Route: PO; ll1 13:58 Follow up: Response: No adverse reaction ap3 14:24 Drug: [place] PO 10 mg-325 mg 1 tabs PO once Route: PO; ap3 14:45 Follow up: Response: No adverse reaction; Pain is decreased ap3 14:24 Drug: Ibuprofen PO 800 mg PO once Route: PO; ap3 14:45 Follow up: Response: No adverse reaction; Pain is decreased ap3 Disposition Summary: 09/17/24 14:11 Discharge Ordered Notes: Location: Home messi Problem: new messi Symptoms: have improved messi Condition: Stable messi Diagnosis - Allergic contact dermatitis due to plants, except food messi - Dermatitis, unspecified - poison sumac messi Followup: messi - With: Private Physician - When: 2 - 3 days - Reason: Recheck today's complaints, Continuance of care, Re-evaluation by your physician Followup: [facility] - With: Jp Ayala, - When: 2 - 3 days - Reason: Recheck today's complaints, Re-evaluation by your physician Discharge Instructions: - Discharge Summary Sheet messi - Contact Dermatitis messi - Poison Kiesha Dermatitis messi - Poison [place] Dermatitis messi - Rash, Adult messi - Rash, Adult, [id number] messi - Poison Kiesha Dermatitis, [id number] messi - Contact Dermatitis, [id number] messi - Poison [place] Dermatitis, Irve-ne-Sokx [facility] Forms: - Medication Reconciliation Form [facility] - Antibiotic Education [facility] - Prescription Opioid Use [facility] - Patient Portal Instructions [facility] - Leadership Thank You Letter [facility] Prescriptions: - Pepcid 40 mg Oral tablet - take 1 tablet ORAL route 2 times per day; 10 tablet; Refills: 0, Product [facility] Selection Permitted - Benadryl 25 mg Oral capsule - take 2 capsule ORAL route every 6 hours As needed; 36 tablet; Refills: 0, [facility] Product Selection Permitted - Prednisone 20 mg Oral tablet - take 3 tablets ORAL route once daily for 4 days; 12 tablet; Refills: 0, Product [facility] Selection Permitted - Motrin IB 200 mg Oral tablet - take 3 tablet ORAL route every 6 hours As needed as needed with food; 20 messi tablet; Refills: 0, Product Selection Permitted Signatures: Valentin Brady MD MD cha Prokisch, Amanda RN RN ap3 Yesi Franco RN RN ll1
--- NOTE | 2024-09-17 14:13 | ER ---
Nurse's Notes [facility] Name: Keven Greenberg Age: 44 yrs Sex: Male : 1980 Arrival Date: 09/17/2024 Time: 11:55 Bed DX3 Private MD: Diagnosis: Allergic contact dermatitis due to plants, except food;Dermatitis, unspecified-poison sumac Presentation: 09/17 12:16 Chief complaint: Patient states: Poison florentino rash for 2 days. Coronavirus screen: Client ll1 denies travel out of the [place] in the last 14 days. At this time, the client does not indicate any symptoms associated with coronavirus-19. Ebola Screen: Patient denies travel to an Ebola-affected area in the 21 days before illness onset. Initial Sepsis Screen: Does the patient meet any 2 criteria? No. Patient's initial sepsis screen is negative. Does the patient have a suspected source of infection? No. Patient's initial sepsis screen is negative. Risk Assessment: Do you want to hurt yourself or someone else? Patient reports no desire to harm self or others. 12:16 Method Of Arrival: Ambulatory [facility] 12:16 Acuity: FAMILIA 4 1 12:25 Onset of symptoms was September 16, 2024. [facility] Triage Assessment: 12:16 General: Appears uncomfortable, Behavior is calm, cooperative, appropriate for age. ll1 Pain: Complains of pain in right arm and left arm Quality of pain is described as aching. Derm: Reports itchy rash to body. Historical: - Allergies: 12:16 No Known Allergies; ll1 - PMHx: 12:24 None; ll1 - PSHx: 12:16 wrist repair; ll1 - Immunization history:: Adult Immunizations up to date. - Infectious Disease History:: Denies. - Social history:: Smoking status: Patient reports the use of cigarette tobacco products, smokes one-half pack cigarettes per day. - Family history:: not pertinent. Screenin:44 [facility] ED Fall Risk Assessment (Adult) History of falling in the last 3 months, ap3 including since admission No falls in past 3 months (0 pts) Confusion or Disorientation No (0 pts) Intoxicated or Sedated No (0 pts) Impaired Gait No (0 pts) Mobility Assist Device Used No (0 pt) Altered Elimination No (0 pt) Score/Fall Risk Level 0 - 2 = Low Risk Oriented to surroundings, Maintained a safe environment, Educated pt \T\ family on fall prevention, incl call for assistance when getting out of bed, Assessed \T\ reinforced patient's understanding of fall precautions, Hourly rounding (assess needs \T\ fall precautionary measures) done, Used ambulatory aids as needed (educated on \T\ assisted with). Abuse screen: Denies threats or abuse. Nutritional screening: No deficits noted. Tuberculosis screening: No symptoms or risk factors identified. Assessment: 13:59 Reassessment: No changes from previously documented assessment. Patient and/or family ll1 updated on plan of care and expected duration. Pain level reassessed. Patient is alert, oriented x 3, equal unlabored respirations, skin warm/dry/pink. Patient states feeling better. Vital Signs: 12:25 BP 136 / 94; Pulse 94; Resp 17; Temp 97.5; Pulse Ox 98% ; Weight 81.65 kg; Height 6 ft. ll1 4 in. ; Pain 10/10; 12:25 Body Mass Index 21.91 (81.65 kg, 193.04 cm) ll1 12:25 Pain Scale: Adult ll1 [place] Coma Score: 14:06 Eye Response: spontaneous(4). Motor Response: obeys commands(6). Verbal Response: messi oriented(5). Total: 15. ED Course: 11:58 Patient arrived in ED. al6 12:07 Valentin Brady MD is Attending Physician. messi 12:15 outside smoking when called to triage. ll1 12:20 not in lobby, outside, or restrooms when called to triage for the 2nd time. ll1 12:26 Arm band placed on. ll1 14:09 Jp Ayala DO is Referral Physician. messi 14:44 No provider procedures requiring assistance completed. Patient did not have IV access ap3 during this emergency room visit. 14:45 Patient has correct armband on for positive identification. Provided Education on: ap3 discharge instructions. Administered Medications: 12:44 Drug: diphenhydrAMINE PO 50 mg PO once Route: PO; ll1 13:58 Follow up: Response: No adverse reaction ap3 12:44 Drug: Famotidine PO 40 mg PO once Route: PO; ll1 13:58 Follow up: Response: No adverse reaction ap3 12:44 Drug: predniSONE PO 60 mg PO once Route: PO; ll1 13:58 Follow up: Response: No adverse reaction ap3 14:24 Drug: Herreid PO 10 mg-325 mg 1 tabs PO once Route: PO; ap3 14:45 Follow up: Response: No adverse reaction; Pain is decreased ap3 14:24 Drug: Ibuprofen PO 800 mg PO once Route: PO; ap3 14:45 Follow up: Response: No adverse reaction; Pain is decreased ap3 Medication: 14:45 VIS not applicable for this client. ap3 Outcome: 14:11 Discharge ordered by . messi 14:45 Discharged to home ambulatory, ap3 14:45 Condition: good 14:45 Discharge instructions given to patient, Instructed on discharge instructions, follow up and referral plans. medication usage, Demonstrated understanding of instructions, follow-up care, medications, Prescriptions given X 4, 14:45 Patient left the ED. ap3 Signatures: Valentin Brady MD MD cha Prokisch, Amanda RN RN ap3 Yesi Franco RN RN ll1 Senia Almonte6 Corrections: (The following items were deleted from the chart) 12:21 12:16 Triage completed. ll1 ll1 12:26 12:16 Chief complaint: Patient states: Poison florentino rash for days. ll1 ll1
[2024-09-17] MEDS ORDERED: IBUPROFEN 400 MG TAB ONE (14:21)
[2024-09-17] MEDS ORDERED: HYDROCODONE/APAP 10/325 TAB ONE (14:21)
[2024-09-17 15:05] VITALS: BP 136/94; TEMP 97.5; O2SAT 98
== END 2024-09-17 14:45 | disposition home or self-care (01) ==
LOC: ER 11:55
DX: L23.7 Allergic contact dermatitis due to plants, except food (principal)
CPT/HCPCS: 99283; J7512